=== PATIENT | male | born 1960 | race Caucasian/White ===

== ENCOUNTER → 2018-08-01 | Outpatient (CLI) | payer OTHER | LOC: WCC 12:00 | PROVIDERS: ATTEND Family Medicine Adult Medicine | DX: S81.801A Unspecified open wound, right lower leg, initial encounter (principal); S81.802A Unspecified open wound, left lower leg, initial encounter; K43.2 Incisional hernia without obstruction or gangrene; L95.8 Other vasculitis limited to the skin; M13.80 Other specified arthritis, unspecified site; W17.89XA Other fall from one level to another, initial encounter ==

== ENCOUNTER → 2018-08-06 | Outpatient (CLI) | payer OTHER ==
[~2018-08-06] MED LIST: LIDOCAINE/PRILOCAINE 2.5-2.5% KIT ONE
== END ==
LOC: WCC 12:39
PROVIDERS: ATTEND Family Medicine Adult Medicine
DX: S81.801A Unspecified open wound, right lower leg, initial encounter (principal); S81.802A Unspecified open wound, left lower leg, initial encounter; K43.2 Incisional hernia without obstruction or gangrene; M13.80 Other specified arthritis, unspecified site; M31.31 Wegener's granulomatosis with renal involvement; W17.89XA Other fall from one level to another, initial encounter

== ENCOUNTER → 2018-08-21 | Outpatient (CLI) | payer OTHER | LOC: WCC 16:04 | PROVIDERS: ATTEND Family Medicine Adult Medicine | DX: S81.801A Unspecified open wound, right lower leg, initial encounter (principal); S81.802A Unspecified open wound, left lower leg, initial encounter; K43.2 Incisional hernia without obstruction or gangrene; M13.80 Other specified arthritis, unspecified site; M31.31 Wegener's granulomatosis with renal involvement; W17.89XA Other fall from one level to another, initial encounter ==